=== PATIENT | female | born 1985 | race Two or more races ===

== ENCOUNTER 2021-08-08 00:06 | Emergency (ER) | payer MEDICAID ==
[~2021-08-08] VITALS: Ht 160 cm; Wt 59.1 kg
[2021-08-08] MEDS ORDERED: LEVO75 PO (00:14)
[2021-08-08] MEDS ORDERED: IBUP-1554 PO (00:58)
[2021-08-08] MEDS ORDERED: GUAIFDM PO (00:58)
[2021-08-08] MEDS ORDERED: ONDA-104 PO (00:58)
[2021-08-08] MEDS ORDERED: ACET-2080 PO (00:58)
[2021-08-08] MEDS ORDERED: GuaiFENesin/D-METHORPHAN [SUGAR-FREE] 200-20MG/10 ML SYRUP UDCUP PO ONE (01:00)
[2021-08-08] MEDS ORDERED: ONDANSETRON HCL 4 MG TABLET PO ONE (01:00)
[2021-08-08] MEDS ORDERED: ACETAMINOPHEN/CODEINE 300-30 MG TABLET PO ONE (01:00)
[2021-08-08 01:45] VITALS: BP 127/70
== END 2021-08-08 02:00 | disposition home or self-care (01) ==
LOC: EMS 00:11
DX: U07.1 COVID-19 (principal); R51.9 Headache, unspecified; E05.90 Thyrotoxicosis, unspecified without thyrotoxic crisis or storm; Z79.899 Other long term (current) drug therapy
CPT/HCPCS: 99284; Q0162

== ENCOUNTER 2023-07-25 17:50 | Emergency (ER) | payer MEDICAID ==
[~2023-07-25] VITALS: Ht 154.9 cm; Wt 59.1 kg
[~2023-07-25 17:50] MED LIST: ACET-2080 PO; GUAIFDM PO; IBUP-1554 PO; LEVO75 PO; ONDA-104 PO
[2023-07-25] MEDS ORDERED: HYDR200T38 PO (18:01)
[2023-07-25] MEDS ORDERED: AZAT50TA22 PO (18:01)
[2023-07-25 18:14] LABS: COVID AG,FIA SOURCE NASAL SWAB
[2023-07-25 18:24] LABS: SARS-COV2 (COVID) ANTIGEN,FIA Negative (Negative)
[2023-07-25 18:27] LABS: INFLUENZA TYPE A NEGATIVE FOR TYPE A (NEGATIVE); INFLUENZA TYPE B NEGATIVE FOR TYPE B (NEGATIVE)
[2023-07-25 18:29] LABS: RAPID GROUP A STREP NEGATIVE (NEGATIVE)
[2023-07-25] MEDS ORDERED: ACETAMINOPHEN 500 MG TABLET PO ONE (21:45)
[2023-07-25] MEDS ORDERED: MECLIZINE HCL 25 MG TABLET PO ONE (21:45)
[2023-07-25] MEDS ORDERED: ACET-66 PO (21:47)
[2023-07-25] MEDS ORDERED: ONDA-104 PO (21:47)
[2023-07-25] MEDS ORDERED: GUAIFDM PO (21:47)
[2023-07-25] MEDS ORDERED: MECL-134 PO (21:47)
[2023-07-25 21:52] VITALS: BP 122/84; PULSE 85; RESP 20; TEMP 98
== END 2023-07-25 21:57 | disposition home or self-care (01) ==
LOC: EMS 18:26
DX: J06.9 Acute upper respiratory infection, unspecified (principal); M33.90 Dermatopolymyositis, unspecified, organ involvement unspecified; E05.90 Thyrotoxicosis, unspecified without thyrotoxic crisis or storm; Z20.822 Contact with and (suspected) exposure to COVID-19
CPT/HCPCS: 87430; 87804; 99283